=== PATIENT | female | born 1980 | race Caucasian/White ===

== ENCOUNTER 2016-06-02 07:33 | Emergency (ER) | payer SELFPAY ==
[~2016-06-02] VITALS: Ht 154.9 cm; Wt 86.2 kg
[2016-06-02 07:41] VITALS: BP 121/96
--- NOTE | 2016-06-02 07:41 | NUR ---
Dr. Dias evaluating patient at bedside.
--- NOTE | 2016-06-02 07:41 | NUR ---
Patient ambulated to bed 4. RN evaluating patient at bedside.
[2016-06-02] MEDS ORDERED: LOVENOX40 MG/0.1 SUBQ (07:42)
--- NOTE | 2016-06-02 07:49 | NUR ---
PATIENT PRESENTS TO ED WITH NON RADIATING CHEST PAIN X2.5 HOURS WITH SOB, 98% O2 ON ROOM AIR . DENIES V/D; SKIN IS PINK/WARM/DRY; AAOX4 WITH EVEN AND STEADY GAIT; LUNGS CLEAR BL; HR EVEN AND REGULAR; PT DENIES ANY COUGH AT THIS TIME; PATIENT STATES PAIN OF 8/10 AT THIS TIME; VSS; PATIENT POSITIONED FOR COMFORT; HOB ELEVATED; BEDRAILS UP X2; BED DOWN. ER MD MADE AWARE OF PT STATUS.
[2016-06-02] MEDS ORDERED: MORPHINE SULFATE 2 MG/ML SYR IVP ONE ×3 (07:55→09:00)
[2016-06-02] MEDS ORDERED: ASPIRIN 325 MG TAB PO ONE (07:55)
--- NOTE | 2016-06-02 08:20 | NUR ---
DR. HARTLEY AT BEDSIDE, ASISSTED FOR OCCULT BLOOD TESTING.
--- NOTE | 2016-06-02 08:54 | NUR ---
US TECH AT BEDSIDE
[2016-06-02 09:00] VITALS: BP 122/78
[2016-06-02] MEDS ORDERED: methylPREDNISolone SS 40 MG in WATER STERILE 1 ML IV ONE (09:05)
[2016-06-02] MEDS ORDERED: diphenhydrAMINE 50 MG/ML VIAL IVP ONE (09:05)
[2016-06-02] MEDS ORDERED: NACL 0.9% 500 ML IV ONE (09:05)
--- NOTE | 2016-06-02 09:55 | NUR ---
PATIENT ELOPED FROM FACILITY WITH IV INTACT TO HER RIGHT AC. DISCHARGE INSTRUCTIONS NOT GIVEN TO PATIENT. DR. HARTLEY NOTIFIED.
--- NOTE | 2016-06-02 09:55 | NUR ---
PT REQUESTED TO USE REST ROOM, DID NOT COME BACK FOR A WHILE, PT LEFT OUT OF BUILDING.
--- NOTE | 2016-06-02 09:55 | NUR ---
CHARGE NURSE AWARE OF PT'S ELOPEMENT OF BUILDING.
--- NOTE | 2016-06-02 10:00 | NUR ---
PT LEFT USING FRONT DOOR STATING TO DETENTION DEPUTY, LALA THAT SHE WILL BE RIGHT BACK.
--- NOTE | 2016-06-02 10:10 | NUR ---
CALLED HER PROVIDED PHONE NO, THE PERSON WHO PICKED UP STATED THAT IS THE WRONG NO.
--- NOTE | 2016-06-02 10:18 | NUR ---
TRIED TO CALL HER NEXT OF KIS, SISTER, NO ANSWER.
--- NOTE | 2016-06-02 10:25 | NUR ---
REPORTED PT'S ELOPEMENT WITH IV INTACT TO [place] [employer].
--- NOTE | 2016-06-02 11:37 | NUR ---
POLICE OFFICERS CAME, GIVEN ALL DESCRIPTION FOR THE PT. THEY WILL LOOK FOR HER, AND IF THEY FIND HER THEY WILL BRING HER BACK.
== END 2016-06-02 10:00 | disposition left against medical advice (07) ==
LOC: MED 07:33
DX: R07.2 Precordial pain (principal)
CPT/HCPCS: 36415; 71010; 80053; 81025; 83880; 84484; 85025; 85610; 85730; 93005; 93971; 96374; 96375; 96376; 99285; J1200; J2270; J2920; J7030; Q0092